=== PATIENT | male | born 1990 | race Two or more races ===

== ENCOUNTER 2021-03-19 13:05 | Emergency (ER) | payer OTHER ==
[~2021-03-19] VITALS: Ht 177.8 cm; Wt 97.5 kg
[2021-03-19 13:35] VITALS: BP 127/80
== END 2021-03-19 13:52 | disposition left against medical advice (07) ==
LOC: ER 13:05 → EDBD 13:05 → ER 13:52
DX: F15.10 Other stimulant abuse, uncomplicated (principal); Z53.21 Procedure and treatment not carried out due to patient leaving prior to being seen by health care provider

== ENCOUNTER 2021-11-12 13:22 | Emergency (ER) | payer MEDICAID, OTHER ==
[~2021-11-12] VITALS: Ht 180.3 cm; Wt 107.0 kg
[2021-11-12 13:24] VITALS: BP 139/84
== END 2021-11-12 15:18 | disposition left against medical advice (07) ==
LOC: ER 13:22
DX: R07.9 Chest pain, unspecified (principal); Z53.21 Procedure and treatment not carried out due to patient leaving prior to being seen by health care provider
CPT/HCPCS: 71046

== ENCOUNTER 2022-03-23 20:00 | Emergency (ER) | payer MEDICAID ==
[~2022-03-23] VITALS: Ht 180.3 cm; Wt 108.0 kg
[2022-03-23] MEDS ORDERED: KETOROLAC TROMETH 60MG/2ML VIAL IM ONE (23:00)
[2022-03-24 00:36] VITALS: BP 139/81
== END 2022-03-24 00:32 | disposition home or self-care (01) ==
LOC: EDBD 20:00 → ER 20:00
DX: S82.434A Nondisplaced oblique fracture of shaft of right fibula, initial encounter for closed fracture (principal); S09.90XA Unspecified injury of head, initial encounter; F17.210 Nicotine dependence, cigarettes, uncomplicated; X50.1XXA Overexertion from prolonged static or awkward postures, initial encounter; Y93.89 Activity, other specified; Y92.89 Other specified places as the place of occurrence of the external cause; Y99.8 Other external cause status
CPT/HCPCS: 70450; 70486; 73600; 96372; 99284; J1885

== ENCOUNTER 2022-04-01 13:59 | Emergency (ER) | payer MEDICAID ==
[~2022-04-01] VITALS: Ht 177.8 cm; Wt 68.0 kg
[2022-04-01 14:47] VITALS: BP 143/86
[2022-04-01] MEDS ORDERED: IBUP800T27 PO (17:58)
[2022-04-01] MEDS ORDERED: HYDROcodone-ACET 7.5/325MG TAB PO ONE (18:00)
== END 2022-04-01 18:28 | disposition home or self-care (01) ==
LOC: ER 13:59
DX: Z47.89 Encounter for other orthopedic aftercare (principal); M79.604 Pain in right leg; E78.5 Hyperlipidemia, unspecified; F17.210 Nicotine dependence, cigarettes, uncomplicated; Z79.1 Long term (current) use of non-steroidal anti-inflammatories (NSAID)
CPT/HCPCS: 29505

== ENCOUNTER 2022-05-28 23:01 | Emergency (ER) | payer MEDICAID ==
[~2022-05-28] VITALS: Ht 177.8 cm; Wt 106.0 kg
[2022-05-28 23:01] VITALS: BP 134/82
[~2022-05-28 23:01] MED LIST: IBUP800T27 PO
[2022-05-29] MEDS ORDERED: ACETAMINOPHEN 325 MG TAB PO ONE (02:15)
[2022-05-29] MEDS ORDERED: HYDROcodone-ACET 5/325MG TAB PO ONE (08:15)
[2022-05-29] MEDS ORDERED: IBUP800T27 PO (08:22)
[2022-05-29] MEDS ORDERED: CEPH-510 PO (08:22)
== END 2022-05-29 08:35 | disposition home or self-care (01) ==
LOC: ER 23:01
DX: R22.42 Localized swelling, mass and lump, left lower limb (principal); S82.401D Unspecified fracture of shaft of right fibula, subsequent encounter for closed fracture with routine healing; F17.210 Nicotine dependence, cigarettes, uncomplicated; X58.XXXD Exposure to other specified factors, subsequent encounter
CPT/HCPCS: 29515; 73610